=== PATIENT | male | born 1970 | race Caucasian/White ===

== ENCOUNTER 2016-11-07 12:01 | Emergency (ER) | payer MEDICAID ==
[2016-11-07 12:36] LABS: BASOPHILS 0.5 % (0.0-2.0); EOSINOPHILS 0.4 % (0.0-6.0); LYMPHOCYTES# 1.4 X 10^3uL (0.8-3.8); MEAN CELL VOLUME 83.1 fL (84.0-102.0); MEAN CORPUS. HGB CONCENTRATION 31.6 g/dL (32.0-36.0); MEAN CORPUSCULAR HEMOGLOBIN 26.3 pg (29.0-35.0); MEAN PLATELET VOLUME 7.4 fL (7.4-10.4); MONOCYTES 5.8 % (2.0-10.0); MONOCYTES# 0.5 X 10^3uL (0.2-1.0); NEUTROPHILS 78.3 % (54.0-75.0); NEUTROPHILS# 7.5 X 10^3uL (2.6-6.7); PLATELET COUNT 545 X 10^3uL (130-440); RED BLOOD COUNT 4.94 X 10^6uL (4.20-6.10); WHITE BLOOD COUNT 9.4 X 10^3uL (3.9-10.7)
[2016-11-07 12:49] LABS: A/G RATIO 1.2; ALBUMIN 4.2 g/dL (3.5-5.0); ALKALINE PHOSPHATASE 65 U/L (38-126); ALT 30 U/L (21-72); AST 24 U/L (17-59); BILIRUBIN, TOTAL 0.5 mg/dL (0.2-1.3); BLOOD UREA NITROGEN 9 mg/dL (9-20); C-REACTIVE PROTEIN 33.9 mg/L (<10.0); CALCIUM 9.4 mg/dL (8.4-10.2); CHLORIDE 102 mmol/L (98-107); CREATININE 0.8 mg/dL (0.7-1.3); EST GLOMERULAR FILTRATION RATE > 60 mL/min; GLUCOSE 100 mg/dL (70-100); POTASSIUM 4.3 mmol/L (3.5-5.1); SODIUM 136 mmol/L (137-145); TOTAL PROTEIN 7.8 g/dL (6.3-8.2)
[2016-11-07 13:12] LABS: ERYTHROCYTE SEDIMENTATION RATE 82 MM/HR (0-10)
[2016-11-07] MEDS ORDERED: HYDROmorphone HCL 1 MG/ML SYR ONE ×2 (13:19→14:17)
[2016-11-07] MEDS ORDERED: ONDANSETRON HCL 4 MG/2 ML VIAL ONE (13:19)
--- NOTE | 2016-11-07 14:47 | ER PHYSICIAN DOCUMENTATION ---
Physician Documentation [facility] Name:Jimmie Hu Age:46 yrs Sex:Male :1970 Arrival Date:11/07/2016 Time:12:01 Bed4 Private MD: Pavan Armendariz Disposition: 11/07 18:22 Chart complete. tl1 Disposition: 11/07/16 14:15 Discharged to Home/Self Care. Impression: Ulcerative Colitis. - Condition is Fair. - Discharge Instructions: ULCERATIVE COLITIS. - Medical Reconciliation form form. - Follow up: Private Physician; When: 2 - 3 days; Reason: To see Dr Nghia Luna. - Problem is new. - Symptoms are unchanged. HPI: 12:23 This 46 yrs old Male presents to ER via Private Vehicle with complaints of tl1 Abdominal Pain. 17:40 The patient presents with abdominal pain. Onset: The symptoms/episode began/occurred tl1 gradually, 4 day(s) ago. The patient has experienced similar episodes in the past, several times. He was diagnosed with UC in April,, and since then has been treated with prednisone 40 mg a day and Humira. 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 He has had a probably viral URI for about 2 weeks, along with his . He comes in now b/c of persistent LLQ abdominal pain and worsening bloody diarrhea (8 episodes last night) He has intermittent dyspnea associated with prolonged coughing spells, but no f/c/s. He lives in [place] and plans to head down there tonight. There has been discussions of changing his Humira to Remicade, as he has had a poor response to Humira, and there has been discussion of possible colectomy.. Historical: - Allergies: No known drug Allergies; - Home Meds: 1. Prednisone Oral 2. deborah - PMHx: ULCERATIVE COLITIS; neuropathy; - PSHx: SHOULDER SURGERY; - Tetanus: < 10 years. - Ebola Screening: : Patient negative for fever greater than or equal to 101.5 degrees Fahrenheit, and additional compatible Ebola Virus Disease symptoms. Patient denies exposure to infectious person. Patient denies travel to an Ebola-affected area in the 21 days before illness onset. No symptoms or risks identified at this time. . - Immunization history: Flu Vaccine >1 year. - Social history: Smoking status: Patient uses tobacco products, current every day smoker. ROS: 12:30 Abdomen/GI: Positive for abdominal pain, nausea, diarrhea, abdominal cramps, rectal tl1 bleeding, bowel incontinence, Negative for vomiting, constipation, abdominal distension. 12:30 All other systems are negative. Exam: 12:30 Head/Face: Normocephalic, atraumatic. tl1 Eyes: Pupils equal round and reactive to light, extra-ocular motions intact. Lids and lashes normal. Conjunctiva and sclera are non-icteric and not injected. Cornea within normal limits. Periorbital areas with no swelling, redness, or edema. ENT: Nares patent. No nasal discharge, no septal abnormalities noted. Tympanic membranes are normal and external auditory canals are clear. Oropharynx with no redness, swelling, or masses, exudates, or evidence of obstruction, uvula midline. Mucous membranes moist. 12:30 Neck: Trachea midline, no thyromegaly or masses palpated, and no cervical tl1 lymphadenopathy. Supple, full range of motion without nuchal rigidity, or vertebral point tenderness. No Meningismus. 12:30 Constitutional: The patient appears alert, awake, restless, uncomfortable. 12:30 Cardiovascular: Rate: normal, Rhythm: regular, Heart sounds: normal, Edema: is not appreciated, JVD: is not appreciated. 12:30 Respiratory: the patient does not display signs of respiratory distress, Respirations: normal, Breath sounds: decreased breath sounds, that are moderate, are heard in the diffusely. 12:30 Abdomen/GI: Inspection: abdomen appears normal, Bowel sounds: active, Palpation: soft, moderate abdominal tenderness, in the right upper quadrant, left upper quadrant and left lower quadrant. 12:30 Back: CVA tenderness, is absent. 12:30 Musculoskeletal/extremity: Extremities: all appear grossly normal, with no appreciated pain with palpation. 12:30 Skin: Exam negative for acute changes. 12:30 Neuro: Exam negative for acute changes. Vital Signs: 12:16 BP 162 / 101; Pulse 94; Resp 18; Temp 98.3(O); Pulse Ox 92% on R/A; Weight 88.45 kg tg (R); Height 6 ft. 6 in. (198.12 cm) (R); Pain 7/10; 13:24 BP 162 / 99; Pulse 94; Resp 16; Pulse Ox 94% on 2 lpm NC; tg 14:33 BP 132 / 89; Pulse 79; Resp 14; Pulse Ox 91% on R/A; Pain 3/10; tg 12:16 Body Mass Index 22.53 (88.45 kg, 198.12 cm) tg MDM: 12:22 Patient medically screened. tl1 13:30 Differential diagnosis: appendicitis, diverticulitis, GI Bleed, Mesenteric ischemia or tl1 infarction, Peritonitis, Ulcerative colitis. Data reviewed: vital signs, nurses notes, old medical records, lab test result(s), CBC, electrolytes, hepatic panel, radiologic studies, plain films, and as a result, I will discharge patient. Counseling: I had a detailed discussion with the patient and/or guardian regarding: the historical points, exam findings, and any diagnostic results supporting the discharge/admit diagnosis, lab results, radiology results, the need for outpatient follow up, to return to the emergency department if symptoms worsen or persist or if there are any questions or concerns that arise at home. Response to treatment: the patient's symptoms have mildly improved after treatment, and as a result, I will discharge patient. Physician consultation: Julio Toribio was called at 14:20, was contacted at 14:25, regarding patient's condition, outpatient follow-up, reports that he/she is not the patient's physician, Recommends the patient see his Deputy Clerk Of [employer], Dr Nghia Luna within the next few days.. ED course: Pain reasonably well controlled with fairly low doses of dilaudid. He was unable to provide a stool sample. 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 I asked Mr Hu to have a low threshold for going to the ER down in [place] for any significant worsening of his symptoms and we gave him a kit for collecting stool specimens. A flare of his UC seems far and away, the most likely cause of his symptoms. He did take a single cipro tab 3 days ago, but after his symptoms had already started to worsen, and I think C dif or other infectious cause of his symptoms is probably unlikely.. 11/07 12:46 Order name: CBC AUTO DIF, MDIF/RMOR IF IND; Complete Time: 14:18 EDMS 11/07 12:48 Interpretation: WHITE BLOOD COUNT 9.4; HEMOGLOBIN 13.0; HEMATOCRIT 41.0; PLATELET COUNT tl1 545. 02 12:51 Order name: COMPREHENSIVE METABOLIC PANEL; Complete Time: 14:18 EDMS 11/07 12:51 Order name: C-REACTIVE PROTEIN; Complete Time: 14:18 EDMS 11/07 13:12 Order name: ERYTHROCYTE SEDIMENTATION RATE; Complete Time: 14:18 EDMS 11/07 13:24 Order name: Oxygen; Complete Time: 13:24 tg Dispensed Medications: 12:34 Drug: NS 0.9% 1000 ml; Route: IV; Rate: bolus; Site: left antecubital; Delivery: tg [place] Tubing; 14:44 Follow up: IV Status: Completed infusion; IV Intake: 1000ml tg 13:22 Drug: Dilaudid 1 mg; Route: IVP; Site: left antecubital; tg 14:05 Follow up: Response: Pain is decreased tg 13:22 Drug: Zofran 4 mg; Route: IVP; Infused Over: 2 mins; Site: left antecubital; tg 14:05 Follow up: Response: No adverse reaction tg 14:02 CANCELLED (Physician Discretion): NS 0.9% 1000 ml IV at bolus once tg 14:11 Drug: Dilaudid 0.5 mg; Route: IVP; Site: left antecubital; tg 14:45 Follow up: Response: No adverse reaction; Pain is decreased tg Signatures: Thad Fair RN RN tg Pavan Campbell MD MD tl1
--- NOTE | 2016-11-07 14:47 | ER NURSING DOCUMENTATION ---
Nurse's Notes [facility] Name:Jimmie Hu Age:46 yrs Sex:Male :1970 Arrival Date:11/07/2016 Time:12:01 Bed4 Private MD: Diagnosis:Ulcerative Colitis Presentation: 11/07 12:04 Transition of care: patient was not received from another setting of care. tg 12:04 Acuity: JULIO CESAR 3 tg 12:04 Method Of Arrival: Private Vehicle tg 12:07 Presenting complaint: Patient states: "FLare up" of ulcerative colitis. Frequent BMs,. tg cramps, dehydration. Triage Assessment: 12:34 General: Appears uncomfortable, Behavior is cooperative. Pain: Complains of pain in tg abdomen Quality of pain is described as crampy. Neuro: Level of Consciousness is awake, alert. Cardiovascular: Capillary refill < 3 seconds. Respiratory: Reports cough that is persistent. GI: Abdomen is non- distended Reports cramping, diarrhea, Denies vomiting. :. Historical: - Allergies: No known drug Allergies; - Home Meds: 1. Prednisone Oral 2. deborah - PMHx: ULCERATIVE COLITIS; neuropathy; - PSHx: SHOULDER SURGERY; - Tetanus: < 10 years. - Ebola Screening: : Patient negative for fever greater than or equal to 101.5 degrees Fahrenheit, and additional compatible Ebola Virus Disease symptoms. Patient denies exposure to infectious person. Patient denies travel to an Ebola-affected area in the 21 days before illness onset. No symptoms or risks identified at this time. . - Immunization history: Flu Vaccine >1 year. - Social history: Smoking status: Patient uses tobacco products, current every day smoker. Screenin:11 Infectious Disease Risk Unable to Obtain. Abuse screen: Denies threats or abuse. Denies tg injuries from another. Nutritional screening: No deficits noted. Assessment: 14:11 Reassessment: Per Dr. Campbell, Pt's administered 40mg Deborah SQ in pt's ABD at the tg recommendation of Dr. Campbell.. Vital Signs: 12:16 BP 162 / 101; Pulse 94; Resp 18; Temp 98.3(O); Pulse Ox 92% on R/A; Weight 88.45 kg tg (R); Height 6 ft. 6 in. (198.12 cm) (R); Pain 7/10; 13:24 BP 162 / 99; Pulse 94; Resp 16; Pulse Ox 94% on 2 lpm NC; tg 14:33 BP 132 / 89; Pulse 79; Resp 14; Pulse Ox 91% on R/A; Pain 3/10; tg 12:16 Body Mass Index 22.53 (88.45 kg, 198.12 cm) tg ED Course: 12:02 Patient arrived in ED. ama 12:04 Triage completed. tg 12:07 Thad Fair RN is Primary Nurse. tg 12:11 Valuables Remains with patient. tg 12:22 Pavan Campbell MD is Attending Physician. tl1 12:29 Inserted peripheral IV: 20 gauge in left antecubital area and blood collected. tg 12:52 Patient moved to radiology. hz 12:59 Patient moved back from radiology. hz 13:24 Oxygen Oxygen administration via nasal cannula @ 2L/min. tg Administered Medications: 12:34 Drug: NS 0.9% 1000 ml; Route: IV; Rate: bolus; Site: left antecubital; Delivery: tg Goeh[place] Tubing; 14:44 Follow up: IV Status: Completed infusion; IV Intake: 1000ml tg 13:22 Drug: Dilaudid 1 mg; Route: IVP; Site: left antecubital; tg 14:05 Follow up: Response: Pain is decreased tg 13:22 Drug: Zofran 4 mg; Route: IVP; Infused Over: 2 mins; Site: left antecubital; tg 14:05 Follow up: Response: No adverse reaction tg 14:02 CANCELLED (Physician Discretion): NS 0.9% 1000 ml IV at bolus once tg 14:11 Drug: Dilaudid 0.5 mg; Route: IVP; Site: left antecubital; tg 14:45 Follow up: Response: No adverse reaction; Pain is decreased tg Intake: 14:44 IV: 1000ml; Total: 1000ml. tg Outcome: 14:15 Discharge ordered by . tl1 14:33 IV D/Alli tg 14:45 Discharged to home ambulatory, with family. tg 14:45 Condition: improved 14:45 Discharge Assessment: Patient awake and alert. 14:45 Discharge instructions given to patient, family, Instructed on discharge instructions, follow up and referral plans. Home stool collection 14:46 Patient left the ED. tg Signatures: Thad Fair RN RN tg Christopher Gamino, Reg Reg Pavan Plummer MD MD tl1 Mónica Suarez
--- NOTE | 2016-11-10 17:13 | RADIOLOGY REPORT ---
Two views of the chest, without prior films for comparison, demonstrate the heart, vessels and lungs to be unremarkable. No infiltrate, fluid or pneumothorax is seen. IMPRESSION: Unremarkable two views of the chest. MTDD
== END 2016-11-07 14:46 | disposition home or self-care (01) ==
LOC: ER 12:01
DX: K51.911 Ulcerative colitis, unspecified with rectal bleeding (principal); R10.84 Generalized abdominal pain; Z79.52 Long term (current) use of systemic steroids; Z79.899 Other long term (current) drug therapy; F17.210 Nicotine dependence, cigarettes, uncomplicated
CPT/HCPCS: 71020; 80053; 85025; 85651; 86140; 96361; 96374; 96375; 96376; 99284; J1170; J2405